=== PATIENT | male | born 1990 | race Caucasian/White ===

== ENCOUNTER 2021-10-15 12:22 | Emergency (ER) | payer MEDICAID ==
[~2021-10-15] VITALS: Ht 177.8 cm; Wt 72.7 kg
[2021-10-15 12:26] VITALS: BP 137/93
[2021-10-15] MEDS ORDERED: AMOX-117 PO (13:11)
[2021-10-15] MEDS ORDERED: dexamethasone sod phosphate 10mg/ml inj PO STA (13:12)
[2021-10-16] MEDS ORDERED: LEVO500T90 PO (11:51)
[2021-10-16] MEDS ORDERED: HYDR-3965 PO (11:51)
[2021-10-16] MEDS ORDERED: METH4TAB3 PO (11:51)
== END 2021-10-15 13:51 | disposition home or self-care (01) ==
LOC: ER 12:23
DX: J35.1 Hypertrophy of tonsils (principal); Z72.89 Other problems related to lifestyle; Z79.2 Long term (current) use of antibiotics
CPT/HCPCS: 87081; 87880; 99283; J1100

== ENCOUNTER 2021-10-16 09:24 | Emergency (ER) | payer MEDICAID ==
[~2021-10-16] VITALS: Ht 177.8 cm; Wt 72.7 kg
[~2021-10-16 09:24] MED LIST: AMOX-117 PO
[2021-10-16] MEDS ORDERED: dexamethasone sod phosphate 10mg/ml inj IV ONE (09:46)
[2021-10-16] MEDS ORDERED: ketorolac trometh. 30mg/ml inj. IV ONE (09:50)
[2021-10-16] MEDS ORDERED: CefTRIAXone 2gm/NS 100ml IVPB 100 ML IV ONE (09:50)
[2021-10-16] MEDS ORDERED: normal saline 1000ML IV soln IV ONE (09:50)
[2021-10-16 10:09] LABS: BASOPHILS % (AUTO) 0.3 % (0-1); EOSINOPHILS % (AUTO) 0.1 % (0-6); HEMATOCRIT 43.7 % (42.0-52.0); HEMOGLOBIN 14.7 g/dl (14.0-17.9); LYMPHOCYTES # (AUTO) 1.8 X10'3 (1.1-4.8); LYMPHOCYTES % (AUTO) 13.3 % (21-51); MEAN CORPUSCULAR HEMOGLOBIN 29.8 PG (27.0-31.0); MEAN CORPUSCULAR HGB CONC 33.7 g/dL (33.0-36.5); MEAN CORPUSCULAR VOLUME 88.4 FL (78-98); MEAN PLATELET VOLUME 10.4 FL (7.4-10.4); MONOCYTES # (AUTO) 1.5 X10'3 (0-0.9); MONOCYTES % (AUTO) 11.1 % (2-12); NEUTROPHILS # (AUTO) 10.4 X10'3 (1.8-7.7); NEUTROPHILS % (AUTO) 75.2 % (42-75); PLATELET COUNT 108 X10'3 (140-440); RED BLOOD COUNT 4.94 X10'6 (4.70-6.10); RED CELL DISTRIBUTION WIDTH 13.4 % (11.5-14.5); WHITE BLOOD COUNT 13.8 X10'3 (4.5-11.0)
[2021-10-16] MEDS ORDERED: iohexol 300mg/ml 100ml inj. ONE (10:35)
--- NOTE | 2021-10-16 10:40 | NUR ---
to ct scan.
[2021-10-16 10:56] LABS: ALANINE AMINOTRANSFERASE 26 U/L (12-78); ALBUMIN 3.8 G/DL (3.4-5.0); ALKALINE PHOSPHATASE 53 IU/L (46-116); ANION GAP 7 (8-16); ASPARTATE AMINO TRANSFERASE 21 U/L (10-37); BILIRUBIN,TOTAL 0.5 MG/DL (0.1-1.0); BLOOD UREA NITROGEN 14 MG/DL (7-18); BUN/CREATININE RATIO 13.2 (5.4-32.0); CALCIUM 8.7 MG/DL (8.5-10.1); CHLORIDE 108 MMOL/L (99-107); CREATININE 1.06 MG/DL (0.60-1.10); GLUCOSE 98 MG/DL (70-104); SODIUM 144 MMOL/L (135-145); TOTAL CARBON DIOXIDE 28.7 MMOL/L (24-32); TOTAL PROTEIN 7.8 G/DL (6.4-8.2); eGFR 83 ML/MIN
[2021-10-16] MEDS ORDERED: levoFLOXACIN-Levaquin 500mg/D5 100 ML IV ONE (11:10)
[2021-10-16] MEDS ORDERED: HYDROcodone/acetaminophen 5mg/325mg tablet PO ONE (11:20)
[2021-10-16] MEDS ORDERED: METH4TAB3 PO (11:51)
[2021-10-16] MEDS ORDERED: LEVO500T90 PO (11:51)
[2021-10-16] MEDS ORDERED: HYDR-3965 PO (11:51)
[2021-10-16 12:13] VITALS: BP 123/79
== END 2021-10-16 12:57 | disposition home or self-care (01) ==
LOC: ER 09:24
DX: K11.20 Sialoadenitis, unspecified (principal); R59.0 Localized enlarged lymph nodes; Z72.89 Other problems related to lifestyle; Z79.2 Long term (current) use of antibiotics; Z79.899 Other long term (current) drug therapy; Z86.19 Personal history of other infectious and parasitic diseases
CPT/HCPCS: 36415; 70491; 80053; 85025; 96365; 96366; 96368; 96375; 99285; J0696; J1100; J1885; J1956; J7030; Q9967

== ENCOUNTER 2023-04-17 10:20 | Inpatient (IN) | payer MEDICAID ==
[2023-04-16 10:00] VITALS: BP 127/55; PULSE 83; RESP 16; TEMP 98.6; O2SAT 99
[~2023-04-17] VITALS: Ht 177.8 cm; Wt 60.0 kg
[~2023-04-17 10:20] MED LIST changes: -AMOX-117 PO; +METH4TAB3 PO
[2023-04-17 10:48] LABS: HEMOGLOBIN 15.2 g/dl (14.0-17.9); MEAN CORPUSCULAR HEMOGLOBIN 30.3 PG (27.0-31.0); RED BLOOD COUNT 5.03 X10'6 (4.70-6.10); RED CELL DISTRIBUTION WIDTH 13.2 % (11.5-14.5)
[2023-04-17 10:52] LABS: BASOPHILS % (AUTO) 0.4 % (0-1); EOSINOPHILS % (AUTO) 0.5 % (0-6); HEMATOCRIT 45.1 % (42.0-52.0); LYMPHOCYTES # (AUTO) 1.9 X10'3 (1.1-4.8); LYMPHOCYTES % (AUTO) 26.7 % (21-51); MEAN CORPUSCULAR HGB CONC 33.7 g/dL (33.0-36.5); MEAN CORPUSCULAR VOLUME 89.7 FL (78-98); MEAN PLATELET VOLUME 9.8 FL (7.4-10.4); MONOCYTES # (AUTO) 0.6 X10'3 (0-0.9); MONOCYTES % (AUTO) 8.8 % (2-12); NEUTROPHILS # (AUTO) 4.5 X10'3 (1.8-7.7); NEUTROPHILS % (AUTO) 63.6 % (42-75); PLATELET COUNT 210 X10'3 (140-440)
[2023-04-17 11:13] LABS: ALANINE AMINOTRANSFERASE 40 U/L (12-78); ALBUMIN 4.6 G/DL (3.4-5.0); ALBUMIN/GLOBULIN RATIO 1.3 (1.1-1.5); ALKALINE PHOSPHATASE 60 IU/L (46-116); ANION GAP 8 (8-16); ASPARTATE AMINO TRANSFERASE 25 U/L (10-37); BILIRUBIN,TOTAL 0.8 MG/DL (0.1-1.0); BLOOD UREA NITROGEN 23 MG/DL (7-18); CALCIUM 9.8 MG/DL (8.5-10.1); CHLORIDE 102 MMOL/L (99-107); GLUCOSE 103 MG/DL (70-104); POTASSIUM 4.4 MMOL/L (3.5-5.1); SODIUM 138 MMOL/L (135-145); TOTAL CARBON DIOXIDE 27.7 MMOL/L (24-32); TOTAL PROTEIN 8.2 G/DL (6.4-8.2); eCRCL 91 ML/MIN; eGFR 87 ML/MIN
[2023-04-17 11:51] LABS: D-DIMER < 0.19 MG/L FEU (0-0.50); PRO BRAIN NATRIURETIC PEPTIDE < 30 PG/ML (0-125)
[2023-04-17] MEDS ORDERED: aspirin 325mg tablet PO ONE (12:45)
[2023-04-17] MEDS ORDERED: acetaminophen 325mg tablet PO PRN (12:50)
[2023-04-17] MEDS ORDERED: potassium Cl 20 mEq SR tablet PO PRN ×2 (12:50)
[2023-04-17] MEDS ORDERED: ondansetron/PF 4mg/2ml inj IV PRN (12:50)
[2023-04-17] MEDS ORDERED: magnesium 2GM in 50ml NS 50 ML IV PRN (12:50)
[2023-04-17] MEDS ORDERED: potassium Cl 40MEQ/1/2NS 520ml 520 ML IV PRN (12:50)
[2023-04-17] MEDS ORDERED: HYDROcodone/acetaminophen 10/325mg tab PO PRN (12:50)
[2023-04-17] MEDS ORDERED: magnesium 4gm in 100ml NS 100 ML IV PRN (12:50)
[2023-04-17] MEDS ORDERED: mag hydrox/Alum hydrox/simeth 30ml oral suspension PO PRN (12:50)
[2023-04-17] MEDS ORDERED: magnesium hydroxide 30ml (MOM) UD suspension PO PRN (12:50)
[2023-04-17] MEDS ORDERED: magnesium Cl slow-release 64mg tablet PO PRN (12:50)
[2023-04-17] MEDS ORDERED: HYDROcodone/acetaminophen 5mg/325mg tablet PO PRN (12:50)
[2023-04-17] MEDS ORDERED: NO HOME MEDS (15:22)
[2023-04-17 15:44] LABS: HEMOGLOBIN A1C 5.3 % (4.5-6.2)
--- NOTE | 2023-04-17 18:36 | NUR ---
PT DECLINES MRSA SWAB
[2023-04-17] MEDS: docusate sod 100mg capsule PO SCH (20:00)
[2023-04-17] MEDS ORDERED: enoxaparin 40mg/0.4ml syringe SQ SCH (20:00)
[2023-04-17] MEDS: K and/or MAG REPLACEMENT MC SCH (20:08)
--- NOTE | 2023-04-17 20:26 | NUR ---
I have reviewed and agree with all interventions, assessments performed and documented by tamiko oquendo
[2023-04-17 22:30] VITALS: BP 134/32; PULSE 73; RESP 16; TEMP 98.2; O2SAT 99
[2023-04-18 02:08] LABS: URINE AMPHETAMINE SCREEN NEGATIVE (Neg); URINE BARBITUATE SCREEN NEGATIVE (Neg); URINE BENZODIAZEPINES SCREEN NEGATIVE (Neg); URINE CANNABINOID SCREEN POSITIVE (Neg); URINE COCAINE SCREEN NEGATIVE (Neg); URINE OPIATE SCREEN NEGATIVE (Neg); URINE PHENCYCLIDINE SCREEN NEGATIVE (Neg)
--- NOTE | 2023-04-18 04:08 | NUR ---
I AGREE WITH CONTRACTS MANAGER PHYSICAL ASSESSMENT
[2023-04-18 06:00] VITALS: BP 117/57; PULSE 88; RESP 16; TEMP 98; O2SAT 99
[2023-04-18 06:47] LABS: BASOPHILS % (AUTO) 0.5 % (0-1); EOSINOPHILS # (AUTO) 0.2 X10'3 (0-0.9); HEMOGLOBIN 14.7 g/dl (14.0-17.9); MONOCYTES # (AUTO) 0.8 X10'3 (0-0.9); MONOCYTES % (AUTO) 8.9 % (2-12)
[2023-04-18 06:49] LABS: EOSINOPHILS % (AUTO) 1.7 % (0-6); HEMATOCRIT 43.8 % (42.0-52.0); LYMPHOCYTES # (AUTO) 2.1 X10'3 (1.1-4.8); LYMPHOCYTES % (AUTO) 22.2 % (21-51); MEAN CORPUSCULAR HEMOGLOBIN 30.3 PG (27.0-31.0); MEAN CORPUSCULAR HGB CONC 33.6 g/dL (33.0-36.5); MEAN CORPUSCULAR VOLUME 90.2 FL (78-98); MEAN PLATELET VOLUME 10.5 FL (7.4-10.4); NEUTROPHILS # (AUTO) 6.2 X10'3 (1.8-7.7); NEUTROPHILS % (AUTO) 66.7 % (42-75); PLATELET COUNT 187 X10'3 (140-440); RED BLOOD COUNT 4.85 X10'6 (4.70-6.10); RED CELL DISTRIBUTION WIDTH 13.3 % (11.5-14.5); WHITE BLOOD COUNT 9.3 X10'3 (4.5-11.0)
[2023-04-18 06:59] LABS: ALANINE AMINOTRANSFERASE 29 U/L (12-78); ALBUMIN 3.9 G/DL (3.4-5.0); ALBUMIN/GLOBULIN RATIO 1.3 (1.1-1.5); ALKALINE PHOSPHATASE 55 IU/L (46-116); ANION GAP 6 (8-16); ASPARTATE AMINO TRANSFERASE 19 U/L (10-37); BILIRUBIN,TOTAL 0.6 MG/DL (0.1-1.0); BLOOD UREA NITROGEN 21 MG/DL (7-18); BUN/CREATININE RATIO 21.2 (10.0-20.0); CALCIUM 9.1 MG/DL (8.5-10.1); CHLORIDE 105 MMOL/L (99-107); CREATININE 0.99 MG/DL (0.60-1.10); GLUCOSE 98 MG/DL (70-104); POTASSIUM 4.1 MMOL/L (3.5-5.1); SODIUM 138 MMOL/L (135-145); TOTAL CARBON DIOXIDE 27.1 MMOL/L (24-32); TOTAL PROTEIN 6.9 G/DL (6.4-8.2); eCRCL 92 ML/MIN; eGFR 88 ML/MIN
[2023-04-18] MEDS: K and/or MAG REPLACEMENT MC SCH (07:05)
[2023-04-18 07:07] LABS: CHOLESTEROL 226 MG/DL (0-200); HDL CHOLESTEROL 56 MG/DL (35-60); LDL CHOLESTEROL 155 MG/DL (50-100); MAGNESIUM 2.1 MG/DL (1.5-2.4); THYROID STIMULATING HORMONE 1.97 ulU/ml (0.34-4.50); TRIGLYCERIDES 41 MG/DL (20-135)
[2023-04-18] MEDS: docusate sod 100mg capsule PO SCH (08:00)
[2023-04-18] MEDS ORDERED: iohexol 350MG/ML 100ml bottle IV ONE (09:13)
== END 2023-04-18 17:00 | disposition home or self-care (01) | DRG 422 ==
LOC: ER 10:22 → ED HOLD 12:52 → EDBEDREQ 21:34 → ORTHO 4S 22:23
PROVIDERS: ADMIT Internal Medicine; ATTEND Internal Medicine
DX: E86.0 Dehydration (principal); E78.5 Hyperlipidemia, unspecified; R00.1 Bradycardia, unspecified; R79.89 Other specified abnormal findings of blood chemistry; R94.31 Abnormal electrocardiogram [ECG] [EKG]
CPT/HCPCS: 36415; 70450; 70496; 70551; 80053; 80061; 80305; 83036; 83735; 83880; 84443; 84484; 85025; 85379; 87081; 93306; 93880; 99285; G0378; J3490; Q9967

== ENCOUNTER 2024-07-13 03:32 | Inpatient (IN) | payer MEDICAID ==
[~2024-07-13] VITALS: Ht 177.8 cm; Wt 68.5 kg
[2024-07-13] MEDS: ringers solution, lacted 1,000 ML IV SCH (00:30)
[~2024-07-13 03:32] MED LIST changes: -METH4TAB3 PO; +NO HOME MEDS
[2024-07-13] MEDS: normal saline 1000ML IV soln IVB ONE ×2 (04:11→04:47)
[2024-07-13 04:17] LABS: BASOPHILS % (AUTO) 0.2 % (0-1); EOSINOPHILS % (AUTO) 0.1 % (0-6); MONOCYTES # (AUTO) 2.7 X10'3 (0-0.9); RED CELL DISTRIBUTION WIDTH 13.5 % (11.5-14.5)
[2024-07-13 04:18] LABS: WHITE BLOOD COUNT 19.5 X10'3 (4.5-11.0)
[2024-07-13 04:19] LABS: HEMATOCRIT 55.2 % (42.0-52.0); LYMPHOCYTES # (AUTO) 1.3 X10'3 (1.1-4.8); LYMPHOCYTES % (AUTO) 6.6 % (21-51); MEAN CORPUSCULAR HGB CONC 34.5 g/dL (33.0-36.5); MEAN CORPUSCULAR VOLUME 89.7 FL (78-98); MEAN PLATELET VOLUME 11.8 FL (7.4-10.4); MONOCYTES % (AUTO) 13.9 % (2-12); NEUTROPHILS # (AUTO) 15.5 X10'3 (1.8-7.7); NEUTROPHILS % (AUTO) 79.2 % (42-75); PLATELET COUNT 279 X10'3 (140-440); RED BLOOD COUNT 6.15 X10'6 (4.70-6.10)
[2024-07-13 04:25] LABS: GASTRIC OCCULT BLOOD POSITIVE (Neg)
[2024-07-13] MEDS: ondansetron/PF 4mg/2ml inj IV ONE ×2 (04:25→04:26)
[2024-07-13] MEDS: proCHLORperazine 10 MG/2 ml inj IV ONE (04:27)
[2024-07-13] MEDS: diphenhydrAMINE 50 mg/ml inj IV ONE (04:27)
[2024-07-13] MEDS: acetaminophen 1,000mg/100ml IV 100 ML IV ONE (04:36)
[2024-07-13] MEDS: pantoprazole 40 MG vial IV ONE (04:36)
[2024-07-13 04:39] LABS: APTT 29 SECONDS (22-32); INR 1.1 INR
[2024-07-13 04:43] LABS: ALANINE AMINOTRANSFERASE 62 U/L (12-78); ALBUMIN 6.2 G/DL (3.4-5.0); ALBUMIN/GLOBULIN RATIO 1.2 (1.1-1.5); ALKALINE PHOSPHATASE 100 IU/L (46-116); ANION GAP 23 (8-16); BILIRUBIN,TOTAL 0.7 MG/DL (0.1-1.0); BLOOD UREA NITROGEN 30 MG/DL (7-18); BUN/CREATININE RATIO 9.8 (10.0-20.0); CHLORIDE 91 MMOL/L (99-107); CREATININE 3.07 MG/DL (0.60-1.10); GLUCOSE 313 MG/DL (70-104); PRO BRAIN NATRIURETIC PEPTIDE 178 PG/ML (0-125); SODIUM 134 MMOL/L (135-145); TOTAL PROTEIN 11.3 G/DL (6.4-8.2); eCRCL 32 ML/MIN; eGFR 24 ML/MIN
[2024-07-13 04:55] LABS: ASPARTATE AMINO TRANSFERASE 65 U/L (10-37); POTASSIUM 4.1 MMOL/L (3.5-5.1)
[2024-07-13 05:08] LABS: CALCIUM 12.5 MG/DL (8.5-10.1)
[2024-07-13] MEDS ORDERED: potassium Cl 20 mEq SR tablet PO PRN ×2 (09:00)
[2024-07-13] MEDS ORDERED: magnesium sulf-water 4G/100mL 100 ML IV PRN (09:00)
[2024-07-13] MEDS ORDERED: magnesium sulf-water 2g/50mL 50 ML IV PRN (09:00)
[2024-07-13] MEDS ORDERED: potassium Cl 40MEQ/1/2NS 520ml 520 ML IV PRN (09:00)
[2024-07-13] MEDS ORDERED: magnesium Cl slow-release 64mg tablet PO PRN (09:00)
[2024-07-13] MEDS ORDERED: mag hydrox/Alum hydrox/simeth 30ml oral suspension PO PRN (09:00)
[2024-07-13] MEDS ORDERED: magnesium hydroxide 30ml (MOM) UD suspension PO PRN (09:00)
[2024-07-13] MEDS ORDERED: acetaminophen 325mg tablet PO PRN ×2 (09:00)
[2024-07-13] MEDS: oseltamivir phos 75mg capsule PO SCH (09:18)
[2024-07-13 10:10] VITALS: BP 125/79; PULSE 92; RESP 18; TEMP 98.9; O2SAT 98
[2024-07-13 10:35] LABS: ALBUMIN 4.8 G/DL (3.4-5.0); ANION GAP 14 (8-16); BLOOD UREA NITROGEN 34 MG/DL (7-18); BUN/CREATININE RATIO 15.2 (10.0-20.0); CALCIUM 9.8 MG/DL (8.5-10.1); CHLORIDE 103 MMOL/L (99-107); CREATINE KINASE 471 U/L (39-308); CREATININE 2.23 MG/DL (0.60-1.10); GLUCOSE 130 MG/DL (70-104); POTASSIUM 4.1 MMOL/L (3.5-5.1); SODIUM 139 MMOL/L (135-145); TOTAL CARBON DIOXIDE 21.7 MMOL/L (24-32); eCRCL 44 ML/MIN; eGFR 34 ML/MIN
[2024-07-13 10:44] LABS: OSMOLALITY 305 MOSM/K (280-300)
[2024-07-13 10:57] VITALS: RESP 16; O2SAT 98
[2024-07-13 11:40] LABS: BASOPHILS # (AUTO) 0.1 X10'3 (0-0.2); BASOPHILS % (AUTO) 0.6 % (0-1); EOSINOPHILS % (AUTO) 0 % (0-6); HEMATOCRIT 45.2 % (42.0-52.0); HEMOGLOBIN 15.6 g/dl (14.0-17.9); LYMPHOCYTES # (AUTO) 0.7 X10'3 (1.1-4.8); LYMPHOCYTES % (AUTO) 5.9 % (21-51); MEAN CORPUSCULAR HEMOGLOBIN 30.5 PG (27.0-31.0); MEAN CORPUSCULAR HGB CONC 34.4 g/dL (33.0-36.5); MEAN CORPUSCULAR VOLUME 88.5 FL (78-98); MEAN PLATELET VOLUME 10.6 FL (7.4-10.4); MONOCYTES # (AUTO) 1.8 X10'3 (0-0.9); MONOCYTES % (AUTO) 15.8 % (2-12); NEUTROPHILS # (AUTO) 8.9 X10'3 (1.8-7.7); NEUTROPHILS % (AUTO) 77.7 % (42-75); PLATELET COUNT 154 X10'3 (140-440); RED CELL DISTRIBUTION WIDTH 13.1 % (11.5-14.5); WHITE BLOOD COUNT 11.4 X10'3 (4.5-11.0)
[2024-07-13 12:07] LABS: LARGE PLATELETS FEW; PLATELET ESTIMATE NORMAL
[2024-07-13 12:13] LABS: TOTAL CELLS COUNTED 100
[2024-07-13] MEDS: pantoprazole 40MG/NS 100ML BAG 100 ML IV SCH (15:14)
[2024-07-13] MEDS: ondansetron/PF 4mg/2ml inj IV PRN (16:51)
[2024-07-13 17:13] LABS: HEMATOCRIT 45.3 % (42.0-52.0); HEMOGLOBIN 15.5 g/dl (14.0-17.9); MEAN CORPUSCULAR HEMOGLOBIN 30.6 PG (27.0-31.0); MEAN CORPUSCULAR HGB CONC 34.2 g/dL (33.0-36.5); MEAN CORPUSCULAR VOLUME 89.5 FL (78-98); MEAN PLATELET VOLUME 11.2 FL (7.4-10.4); PLATELET COUNT 159 X10'3 (140-440); RED BLOOD COUNT 5.06 X10'6 (4.70-6.10); RED CELL DISTRIBUTION WIDTH 13.6 % (11.5-14.5); WHITE BLOOD COUNT 10.7 X10'3 (4.5-11.0)
[2024-07-13] MEDS: aspirin 325mg tablet PO ONE (17:44)
[2024-07-13 18:00] VITALS: BP 144/57; PULSE 92; RESP 16; TEMP 99.6; O2SAT 98
[2024-07-13] MEDS: K and/or MAG REPLACEMENT MC SCH (20:00)
[2024-07-13] MEDS: docusate sod 100mg capsule PO SCH (21:47)
[2024-07-13] MEDS: heparin, porcine 5000 units/ml vial SQ SCH (21:49)
[2024-07-13 22:00] VITALS: BP 138/87; PULSE 66; RESP 16; TEMP 97.3; O2SAT 95
[2024-07-13 22:08] LABS: HEMATOCRIT 42.6 % (42.0-52.0); HEMOGLOBIN 14.7 g/dl (14.0-17.9); MEAN CORPUSCULAR HEMOGLOBIN 30.7 PG (27.0-31.0); MEAN CORPUSCULAR HGB CONC 34.6 g/dL (33.0-36.5); MEAN CORPUSCULAR VOLUME 88.6 FL (78-98); MEAN PLATELET VOLUME 10.8 FL (7.4-10.4); PLATELET COUNT 144 X10'3 (140-440); RED BLOOD COUNT 4.81 X10'6 (4.70-6.10); RED CELL DISTRIBUTION WIDTH 13.4 % (11.5-14.5); WHITE BLOOD COUNT 9.9 X10'3 (4.5-11.0)
[2024-07-14] VITALS (14 sets, daily range): BP systolic 114–149; BP diastolic 63–91; PULSE 74–125; RESP 14–22; TEMP 98.4–99; O2SAT 97–99
[2024-07-14 05:08] LABS: BASOPHILS % (AUTO) 0.3 % (0-1); EOSINOPHILS % (AUTO) 0.3 % (0-6); HEMOGLOBIN 14.6 g/dl (14.0-17.9); LYMPHOCYTES # (AUTO) 1.5 X10'3 (1.1-4.8); LYMPHOCYTES % (AUTO) 16.8 % (21-51); MEAN CORPUSCULAR HEMOGLOBIN 30.4 PG (27.0-31.0); MEAN CORPUSCULAR VOLUME 89.5 FL (78-98); MEAN PLATELET VOLUME 10.5 FL (7.4-10.4); MONOCYTES # (AUTO) 1.5 X10'3 (0-0.9); MONOCYTES % (AUTO) 16.6 % (2-12); NEUTROPHILS # (AUTO) 5.8 X10'3 (1.8-7.7); PLATELET COUNT 140 X10'3 (140-440); RED CELL DISTRIBUTION WIDTH 13.3 % (11.5-14.5); WHITE BLOOD COUNT 8.8 X10'3 (4.5-11.0)
[2024-07-14 05:15] LABS: BILIRUBIN,URINE NEGATIVE (Neg); CLARITY,URINE CLEAR (Clear); COLOR,URINE YELLOW (Yellow); GLUCOSE, URINE NEGATIVE (Neg); KETONES,URINE NEGATIVE (Neg); LEUKOCYTE ESTERASE ,URINE NEGATIVE (Neg); NITRITES, URINE NEGATIVE (Neg); OCCULT BLOOD,URINE NEGATIVE (Neg); PROTEIN,URINE TRACE mg/dl (Neg); UA COLLECTION TYPE URINAL; UROBILINOGEN,URINE 0.2 E.U/dL (0.2-1.0)
[2024-07-14 05:31] LABS: ALBUMIN 3.4 G/DL (3.4-5.0); ANION GAP 8 (8-16); BLOOD UREA NITROGEN 26 MG/DL (7-18); BUN/CREATININE RATIO 20.5 (10.0-20.0); CALCIUM 8.2 MG/DL (8.5-10.1); CHLORIDE 106 MMOL/L (99-107); CREATININE 1.27 MG/DL (0.60-1.10); GLUCOSE 98 MG/DL (70-104); MAGNESIUM 2.1 MG/DL (1.5-2.4); PHOSPHORUS 2.8 MG/DL (2.3-4.5); SODIUM 139 MMOL/L (135-145); TOTAL CARBON DIOXIDE 24.9 MMOL/L (24-32); eCRCL 81 ML/MIN; eGFR 66 ML/MIN
[2024-07-14 05:32] LABS: TOTAL CELLS COUNTED 100
[2024-07-14 05:36] LABS: SQUAMOUS EPITHELIAL CELL,UR FEW /LPF (FEW)
[2024-07-14 05:37] LABS: BACTERIA,URINE 1+ /HPF (Neg); FINE GRANULAR CAST 0-3 /LPF (NEGATIVE); RBC,URINE NONE SEEN /HPF (0-2); WBC,URINE 0-4 /HPF (0-4)
[2024-07-14 06:10] LABS: UA EOSINOPHILS NO EOS /HPF
[2024-07-14 06:49] LABS: OSMOLALITY UA 987 MOSM/K (50-1400)
[2024-07-14 07:13] LABS: CHLORIDE,URINE RANDOM < 50 MEQ/L; SODIUM,URINE RANDOM < 15 MEQ/L; URINE AMPHETAMINE SCREEN NEGATIVE (Neg); URINE BARBITUATE SCREEN NEGATIVE (Neg); URINE BENZODIAZEPINES SCREEN NEGATIVE (Neg); URINE CANNABINOID SCREEN POSITIVE (Neg); URINE COCAINE SCREEN NEGATIVE (Neg); URINE METHADONE SCREEN NEGATIVE (Neg); URINE OPIATE SCREEN NEGATIVE (Neg); URINE PHENCYCLIDINE SCREEN NEGATIVE (Neg)
[2024-07-14] MEDS ORDERED: metoprolol tartrate 1mg/ml inj IV PRN (07:50)
[2024-07-14] MEDS ORDERED: aminophylline 250mg/10ml inj. IV PRN (07:50)
[2024-07-14] MEDS ORDERED: nitroGLYCERIN 0.4mg SUBLingual tab SL PRN (07:50)
[2024-07-14 10:51] LABS: HEMATOCRIT 41.2 % (42.0-52.0); HEMOGLOBIN 14.2 g/dl (14.0-17.9); MEAN CORPUSCULAR HEMOGLOBIN 30.7 PG (27.0-31.0); MEAN CORPUSCULAR HGB CONC 34.4 g/dL (33.0-36.5); MEAN CORPUSCULAR VOLUME 89.1 FL (78-98); MEAN PLATELET VOLUME 10.4 FL (7.4-10.4); PLATELET COUNT 132 X10'3 (140-440); RED BLOOD COUNT 4.63 X10'6 (4.70-6.10); RED CELL DISTRIBUTION WIDTH 13.5 % (11.5-14.5); WHITE BLOOD COUNT 7.3 X10'3 (4.5-11.0)
[2024-07-14] MEDS ORDERED: aminophylline 500mg/20ml vial IV PRN (10:54)
[2024-07-14 11:19] LABS: CHOL/HDL RATIO 4.3 (0.00-4.99); CHOLESTEROL 192 MG/DL (0-200); HDL CHOLESTEROL 45 MG/DL (35-60); LDL CHOLESTEROL 121 MG/DL (50-100); TRIGLYCERIDES 96 MG/DL (20-135)
[2024-07-14 12:21] LABS: HEMOGLOBIN A1C 5.5 % (4.5-6.2)
[2024-07-14] MEDS: regadenoson 0.4mg/5ml syringe IV PRN (12:57)
[2024-07-14 17:11] LABS: HEMATOCRIT 43.7 % (42.0-52.0); HEMOGLOBIN 14.7 g/dl (14.0-17.9); MEAN CORPUSCULAR HEMOGLOBIN 30.3 PG (27.0-31.0); MEAN CORPUSCULAR HGB CONC 33.7 g/dL (33.0-36.5); MEAN CORPUSCULAR VOLUME 90.1 FL (78-98); MEAN PLATELET VOLUME 10.6 FL (7.4-10.4); PLATELET COUNT 131 X10'3 (140-440); RED BLOOD COUNT 4.85 X10'6 (4.70-6.10); RED CELL DISTRIBUTION WIDTH 13.5 % (11.5-14.5); WHITE BLOOD COUNT 7.5 X10'3 (4.5-11.0)
[2024-07-14] MEDS ORDERED: pantoprazole 40 MG vial IV SCH (20:00)
== END 2024-07-14 18:00 | disposition left against medical advice (07) | DRG 254 ==
LOC: ER 03:33 → ED HOLD 07:23 → EDBEDREQ 08:54 → ORTHO 4S 10:01
PROVIDERS: ADMIT Family Medicine; ATTEND Family Medicine
PROC: 4A02XM4 Measurement of Cardiac Total Activity, External Approach (ICD-10-PCS; principal; 2024-07-14)
PROC: 3E033HZ Introduction of Radioactive Substance into Peripheral Vein, Percutaneous Approach (ICD-10-PCS; 2024-07-14)
DX: K92.1 Melena (principal); I21.A1 Myocardial infarction type 2; N17.9 Acute kidney failure, unspecified; J10.1 Influenza due to other identified influenza virus with other respiratory manifestations; Z20.822 Contact with and (suspected) exposure to COVID-19; E86.0 Dehydration; R11.2 Nausea with vomiting, unspecified; F12.10 Cannabis abuse, uncomplicated; R79.89 Other specified abnormal findings of blood chemistry; Z53.29 Procedure and treatment not carried out because of patient's decision for other reasons
CPT/HCPCS: 36415; 71045; 78452; 80048; 80053; 80061; 80305; 81001; 82271; 82436; 82550; 82570; 83036; 83605; 83735; 83874; 83880; 83930; 83935; 84100; 84145; 84300; 84484; 85007; 85008; 85025; 85027; 85610; 85730; 86885; 86900; 86901; 87040; 87081; 87207; 87502; 87503; 87811; 93005; 93017; 93306; 99285; A9500; G0378; J0131; J0780; J1200; J1644; J2405; J2470; J2785; J7030; J7040; J7120

== ENCOUNTER 2024-10-30 12:36 | Emergency (ER) | payer MEDICAID ==
[~2024-10-30] VITALS: Ht 177.8 cm; Wt 74.3 kg
--- NOTE | 2024-10-30 13:00 | ELECTROCARDIOGRAPH REPORT ---
[facility] Test Date: 2024-10-30 Test Time: 12:57:10 Pat Name: JAYSON WONG Department: EMERGENCY ROOM Room: Gender: M Senior Sales Manager: SANT[place] : 1990 Requested By: JAYSON CERNA Order Number: [id number] Reading MD: Dr. Mohit Chavez Measurements Intervals [place] Rate: 76 P: -90 NE: 156 QRS: 70 QRSD: 89 T: 53 QT: 367 QTc: 413 Interpretive Statements Ectopic atrial rhythm ST elev, probable normal early repol pattern Electronically Signed On 10-30-2024 18:29:[address] Mohit Chavez Please click the below link to view image of tracing.
[2024-10-30 13:07] LABS: BASOPHILS # (AUTO) 0.1 X10'3 (0-0.2); EOSINOPHILS # (AUTO) 0.2 X10'3 (0-0.9); HEMOGLOBIN 15.6 g/dl (14.0-17.9); LYMPHOCYTES # (AUTO) 2.5 X10'3 (1.1-4.8); MONOCYTES # (AUTO) 0.8 X10'3 (0-0.9); NEUTROPHILS # (AUTO) 5.4 X10'3 (1.8-7.7)
[2024-10-30 13:09] LABS: BASOPHILS % (AUTO) 0.7 % (0-1); EOSINOPHILS % (AUTO) 1.7 % (0-6); HEMATOCRIT 45.9 % (42.0-52.0); LYMPHOCYTES % (AUTO) 27.8 % (21-51); MEAN CORPUSCULAR HGB CONC 33.9 g/dL (33.0-36.5); MEAN CORPUSCULAR VOLUME 88.4 FL (78-98); MEAN PLATELET VOLUME 10.9 FL (7.4-10.4); MONOCYTES % (AUTO) 9.2 % (2-12); NEUTROPHILS % (AUTO) 60.6 % (42-75); PLATELET COUNT 203 X10'3 (140-440); RED BLOOD COUNT 5.19 X10'6 (4.70-6.10); RED CELL DISTRIBUTION WIDTH 13.3 % (11.5-14.5); WHITE BLOOD COUNT 8.8 X10'3 (4.5-11.0)
[2024-10-30 13:18] LABS: ALANINE AMINOTRANSFERASE 36 U/L (12-78); ALBUMIN 4.7 G/DL (3.4-5.0); ALBUMIN/GLOBULIN RATIO 1.4 (1.1-1.5); ALKALINE PHOSPHATASE 75 IU/L (46-116); ANION GAP 9 (8-16); BLOOD UREA NITROGEN 25 MG/DL (7-18); BUN/CREATININE RATIO 24.3 (10.0-20.0); CALCIUM 9.1 MG/DL (8.5-10.1); CHLORIDE 104 MMOL/L (99-107); CREATININE 1.03 MG/DL (0.60-1.10); GLUCOSE 90 MG/DL (70-104); SODIUM 139 MMOL/L (135-145); TOTAL CARBON DIOXIDE 26.5 MMOL/L (24-32); eCRCL 106 ML/MIN; eGFR 84 ML/MIN
[2024-10-30 13:32] LABS: ASPARTATE AMINO TRANSFERASE 43 U/L (10-37); POTASSIUM 3.9 MMOL/L (3.5-5.1)
--- NOTE | 2024-10-30 14:25 | RADIOLOGY REPORT ---
CLINICAL INFORMATION: 34 years old, Male; Dizziness. TECHNIQUE: Axial imaging was obtained through the brain without contrast. Coronal and sagittal reform atted images were obtained, reviewed, and stored. Images were reviewed in brain and bone windows. Al l CT scans at this medical facility are performed using dose modulation techniques as appropriate to a performed exam including the following: Automated exposure control was utilized; adjustment of the MA and/or KV according to patient size; and use of iterative reconstruction technique. CTDIvol = 58.4 3 mGy DLP = 953.95 mGy-cm COMPARISON: MR MRI HEAD on DOS: 04/18/23, CT CTA HEAD on DOS: 04/18/23, CT CT HEAD on DOS: 04/17/23 FINDINGS: There is no acute intracranial hemorrhage. No mass effect or midline shift. The ventricles and sulci are within normal limits in size for age. Basal cisterns are patent. The calvarium is unre markable. Paranasal sinuses and mastoid air cells are clear. IMPRESSION: No CT evidence of acute intracranial abnormality.
--- NOTE | 2024-10-30 15:22 | Physician Documentation ---
History of Present Illness ~ Chief Complaint: Syncope Stated Complaint: PAIN IN HEAD/FALLING OUT OF CONSCIOISNESS X1 WEEK Time Seen by MD: 13:07 Primary Medical Doctor: [facility] Complex history History of seizure disorder and also rhabdomyolysis Presenting now with an episode of near syncope last night Medication Reconciliation Allergies: Coded Allergies: No Known Allergies (Unverified , 07/13/24) Miscellaneous Medications Home Med List (No Home Medications), (Reported) Past Medical History Past Medical History: No Pertinent History Past Surgical History: no surgical history Patient History: FH: heart disease (All his uncles had CABG in his 50s, his grandpa had heart attack at the age of 40) Alcohol Use: Occasionally Drug Use: marijuana Lives In: Home Physical Exam Vital Signs: Temperature: 98.3, Source: Oral, Heart Rate: 77, Respiratory Rate: 14, BP: 133/92, Pulse Oximetry: 98, Weight: 74.300 Oxygen Flow Rate: 0 Progress Results/Orders Results/Orders Orders - JOSH ARDON MD Ct Head (10/30/24 14:03) Completed Orders - JOSH ARDON MD Ct Head (10/30/24 14:03) Vital Signs 10/30/24 10/30/24 10/30/24 10/30/24 12:38 13:10 13:17 13:55 Temp 98.3 98.3 Pulse 81 76 77 71 81 Resp 16 16 14 B/P (MAP) 162/55 141/85 133/92 (106) 132/90 140/94 Pulse Ox 100 98 O2 Flow Rate 0 0 Laboratory Tests Test 10/30/24 12:57 White Blood Count 8.8 Red Blood Count 5.19 Hemoglobin 15.6 Hematocrit 45.9 Mean Corpuscular Volume 88.4 Mean Corpuscular Hemoglobin 30.0 Mean Corpuscular Hemoglobin Concent 33.9 Red Cell Distribution Width 13.3 Platelet Count 203 Mean Platelet Volume 10.9 H Neutrophils (%) (Auto) 60.6 Lymphocytes (%) (Auto) 27.8 Monocytes (%) (Auto) 9.2 Eosinophils (%) (Auto) 1.7 Basophils (%) (Auto) 0.7 Neutrophils # (Auto) 5.4 Lymphocytes # (Auto) 2.5 Monocytes # (Auto) 0.8 Eosinophils # (Auto) 0.2 Basophils # (Auto) 0.1 CBC Comment Sodium Level 139 Potassium Level 3.9 Chloride Level 104 Carbon Dioxide Level 26.5 Anion Gap 9 Blood Urea Nitrogen 25 H Creatinine 1.03 Estimated GFR/1.73 m2 84 BUN/Creatinine Ratio 24.3 H Glucose Level 90 Calcium Level 9.1 Total Bilirubin 1.0 Aspartate Amino Transf (AST/SGOT) 43 H Alanine Aminotransferase (ALT/SGPT) 36 Alkaline Phosphatase 75 Total Protein 8.0 Albumin 4.7 Globulin 3.3 Albumin/Globulin Ratio 1.4 Chemistry Comments Medical Decision Making Findings During the physical examination, the findings suggestive of acute life- threatening condition such as JVD, tracheal deviation, acidotic breathing, noisy stridorous breath sounds, pulses paradoxus, muffled heart sounds, unequal breath sounds, abdominal rigidity and rebound tenderness, focal neurological deficits, cool clammy skin, severe hypotension, severe tachycardia or bradycardia are absent. That is no acute emergent medical condition. Patient is not orthostatic. CBC and CMP are well within normal range. Head CT is negative. Differential diagnosis is wide and most likely is migraine variant. The patient needs the patient's neurological evaluation. DISCLAIMER Inadvertent spelling and grammatical errors,inadvertent nuclear officer errors,syntax errors, grammatical errors, and spelling errors are likely due to EMR/dictation software use and do not reflect on the overall quality of patient care. Note that the electronic time recorded on this note does not necessarily reflect the actual time of the patient encounter. Departure Disposition: 01 HOME / SELF CARE / HOMELESS Impression: Primary Impression: Near syncope Additional Impression: Atypical migraine Condition: Stable Discharge Instructions: Near-Syncope Additional Instructions: Thank you so much for visiting [facility] Emergency room. Please ask your nurse or provider if you have questions about your care today and do not leave until all your questions have been answered. Please use any medications given as directed and follow-up with your doctor in the next 1-3 days. Please discuss with your doctor for neurological evaluation as an outpatient. In the meantime, continue your usual activities and hydrate yourself well. You may also use motrin and tylenol as needed for pain unless instructed oth erwise by your provider or nurse. Indications for more urgent follow-up have been discussed, but you may return to the Emergency Department at ANY time for any worrisome or worsening symptoms. Referrals: NO PRIMARY CARE PROVIDER (PCP) Signature Scribe Signature: x Attestation: JOSH Bee MD October 30, 2024 15:22
[2024-10-30 15:43] VITALS: BP 157/64; PULSE 87; RESP 14; TEMP 97.9; O2SAT 99
== END 2024-10-30 15:45 | disposition home or self-care (01) ==
LOC: ER 12:37
DX: G43.009 Migraine without aura, not intractable, without status migrainosus (principal); R55 Syncope and collapse; F12.90 Cannabis use, unspecified, uncomplicated
CPT/HCPCS: 70450; 80053; 85025; 93005; 99284

== ENCOUNTER 2025-03-13 13:09 | Emergency (ER) | payer MEDICAID ==
[~2025-03-13] VITALS: Ht 177.8 cm; Wt 71.9 kg
[2025-03-13 13:12] VITALS: BP 122/62; PULSE 61; RESP 18; TEMP 97.8; O2SAT 98
--- NOTE | 2025-03-13 13:48 | Physician Documentation ---
History of Present Illness ~ Chief Complaint: Laceration Stated Complaint: FINGER LACERATION Time Seen by MD: 13:43 OK to notify your PCP?: Yes Primary Medical Doctor: [facility] Source: patient, RN/ HPI Patient is seen today with complaints of accidentally cutting his left index finger with a skill saw or table saw. Patient states this happened just prior to arrival. He has no other concern or complaint at this time and states it is just a distal end in his left index finger. Tetanus Within 5 Years: Yes Medication Reconciliation Allergies: Coded Allergies: No Known Allergies (Unverified , 03/13/25) Miscellaneous Medications Home Med List (No Home Medications), (Reported) Past Medical History Past Medical History: No Pertinent History Past Surgical History: no surgical history Patient History: FH: heart disease (All his uncles had CABG in his 50s, his grandpa had heart attack at the age of 40) Alcohol Use: Occasionally Drug Use: marijuana Lives In: Home Review of Systems Constitutional: Denies: chills, fever, weakness Eyes: Denies: pain, blurred vision ENT: Denies: ear pain, nose pain, throat pain, mouth pain Respiratory: Denies: cough, shortness of breath Cardiovascular: Denies: chest pain, palpitations Gastrointestinal: Denies: abdominal pain, nausea, vomiting Genitourinary: Denies: burning, dysuria Male Genitalia: Denies: penile discharge, testicular pain Neurological: Denies: headache, dizziness Musculoskeletal: Denies: pain, swelling Integumentary: Denies: rash, lesions Allergic/Immunologic: Denies: hives, itching Hematologic/Lymphatic: Denies: no symptoms reported Psychiatric: Denies: depression, anxiety Physical Exam Vital Signs: Temperature: 97.8, Source: Oral, Heart Rate: 61, Respiratory Rate: 18, BP: 122/62, Pulse Oximetry: 98, Weight: 71.900 Oxygen Flow Rate: 0 Physical Exam General: Awake and Alert, no acute distress. HEENT: Conjunctiva pink, Sclera clear, Mucus Membranes moist. Neck: Supple without masses and tenderness. Resp: Unlabored. Lungs clear to auscultation bilaterally. Heart: Regular Rate and rhythm, normal S1 and S2 without murmur, rub or gallop. Musculoskeletal: Patient on exam does have laceration through the distal tuft of the left index finger involving the nail. The laceration is 1-1/2 cm in length. Patient is neurovascularly intact distally. Motor function intact distally. Extremities: No cyanosis,clubbing or edema. Skin: Warm and Dry. Procedures Laceration/Wound Repair Laceration : Procedure Note Procedure note: Patient did have digital block of left index finger today performed by myself using lidocaine 1% plain without epinephrine 4 cc. Patient tolerated well. Wound was irrigated copiously with normal saline and iodine. Three simple sutures using 4-0 Ethilon were performed to achieve closure of the 1.5 cm laceration of the distal tuft of the left index finger. Nonstick dressing was then applied and finger bandaged. Progress Results/Orders Results/Orders Orders - CHANDAN SORIANO Finger(S) (03/13/25 14:50) Completed Orders - CHANDAN SORIANO Lidocaine 1% 30ml Vial (Xylocaine 1% Via (03/13/25 13:47) Finger(S) (03/13/25 14:50) Vital Signs 03/13/25 13:12 Temp 97.8 Pulse 61 Resp 18 B/P (MAP) 122/62 Pulse Ox 98 O2 Flow Rate 0 EKG/XRAY/CT/US/VASC/MRI Bone/Soft Tissue X-Ray (Ext.) : Additional Comment X-ray of left index finger shows no sign of fracture and no bony involvement. Bones are in anatomic alignment. No osteolytic or blastic lesions. DIAGNOSTIC RADIOLOGY Patient: JAYSON WONG Medical Record: [id number] 1990, Age: 35 Sex: Male Location: ER Patient Status: REG ER Service Date/Time: 03/13/251449 Ordering Physician: CHANDAN SORIANO Exam: FINGER(S) CLINICAL INDICATION: injury left index finger TECHNIQUE: 3 radiographic views of the left index finger were obtained. Comparison: None FINDINGS/IMPRESSION: There is 1 mm density distal to the 3rd digit tuft which may represent sequela of injury of unknown chronicity versus artifact or may be external to the patient. Otherwise, no evidence of acute fracture or dislocation. The visualized joint space is well maintained. A kianna overlies the proximal phalanx of the 4th digit limiting evaluation. The alignment is anatomical. Electronically Signed by:ANAYELI LÓPEZ DO Date & Time: 03/13/25 1520 Dictated by: ANAYELI LÓPEZ DO Dictation date and time: 03/13/25 1500 Primary Care Provider: NO PRIMARY CARE PROVIDER cc: CHANDAN SORIANO PAC ~ Medical Decision Making Findings Patient is seen today with complaints of accidentally cutting his left index finger with a skill saw or table saw. Patient states this happened just prior to arrival. He has no other concern or complaint at this time and states it is just a distal end in his left index finger. Patient did have three simple sutures placed in the distal end in his left index finger that will need to be removed in 7-10 days. Patient will change dressing daily with nonstick dressing. Patient may follow up with primary care or return to ER for suture removal. Return to ED with any worsening, concerning or changing symptoms. Departure Disposition: HOME / SELF CARE / HOMELESS Impression: Primary Impression: Laceration Additional Impression: Laceration of index finger with damage to nail Qualified Codes: S61.311A - Laceration without foreign body of left index finger with damage to nail, initial encounter Condition: Improved Discharge Instructions: Laceration Care, Adult, [id number] Additional Instructions: Patient did have three simple sutures placed in the distal end in his left index finger that will need to be removed in 7-10 days. Patient will change dressing daily with nonstick dressing. Patient may follow up with primary care or return to ER for suture removal. Return to ED with any worsening, concerning or changing symptoms. Referrals: NO PRIMARY CARE PROVIDER (PCP) Signature Scribe Signature: No scribe Attestation: No scribe CHANDAN SORIANO Mar 13, 2025 13:48
[2025-03-13] MEDS: LIDOcaine 1% 30ml preserv. free vial IJ STA (13:58)
--- NOTE | 2025-03-13 15:22 | RADIOLOGY REPORT ---
CLINICAL INDICATION: injury left index finger TECHNIQUE: 3 radiographic views of the left index finger were obtained. Comparison: None FINDINGS/IMPRESSION: There is 1 mm density distal to the 3rd digit tuft which may represent sequela of injury of unknown chronicity versus artifact or may be external to the patient. Otherwise, no evidence of acute fracture or dislocation. The visualized joint space is well maintained. A kianna overlies the proximal phalanx of the 4th digit limiting evaluation. The alignment is anatomical.
== END 2025-03-13 15:41 | disposition home or self-care (01) ==
LOC: ER 13:09
DX: S61.311A Laceration without foreign body of left index finger with damage to nail, initial encounter (principal); F12.90 Cannabis use, unspecified, uncomplicated; X58.XXXA Exposure to other specified factors, initial encounter; Y93.89 Activity, other specified; Y92.89 Other specified places as the place of occurrence of the external cause; Y99.8 Other external cause status
CPT/HCPCS: 12001; 73140; 99283; A6222; A6258; A6446